=== PATIENT | male | born 1970 | race Caucasian/White ===

== ENCOUNTER 2016-11-14 12:21 | Emergency (ER) | payer BC ==
[~2016-11-14] VITALS: Ht 182.9 cm; Wt 125.0 kg
[~2016-11-14 12:21] MED LIST: AMLODIPINE BESYL5 MG; COLACE100 MG PO; FENOFIBRATE160 M1; FLEXERIL10 MG PO; GLUMETZA500 M1 PO; LISINOPRIL-HCT1 EAC3; LORTAB 5-325 M1 EACH PO; MOBIC7.5 MG PO; MOTRIN600 MG PO; MOTRIN800 MG PO; NAPROSYN500 MG PO; NORCO 5/3251 TABLET PO; PRAVACHOL20 MG PO; PRAVASTATIN; PREDNISONE20 MG PO; TAMIFLU75 MG PO
[2016-11-14 13:17] LABS: ADD MIUA? YES; BILIRUBIN NEGATIVE; BLOOD NEGATIVE; COLOR YELLOW ((YELLOW)); GLUCOSE (STRIP) 150; KETONES NEGATIVE; LEUKOCYTES NEGATIVE; NITRITE NEGATIVE; PROTEIN (STRIP) 100; SPECIFIC GRAVITY 1.029 (1.000-1.030)
[2016-11-14 13:22] LABS: BACTERIA NONE SEEN /HPF; EPITHELIAL CELLS RARE /HPF; MUCUS 1+ /LPF; RED BLOOD CELLS 0-5 /HPF (0-5); UCUL ADDED? NO; WHITE BLOOD CELLS 0-5 /HPF (0-5)
[2016-11-14 13:33] LABS: HEMATOCRIT 50.2 % (38.0-50.0); MCH 29.2 PG (29.0-34.0); MCHC 33.5 G/DL (30.0-36.0); MCV 87.2 FL (86-99); MEAN PLAT.VOLUME 9.4 uM^3 (9.0-12.4); PLATELET COUNT 235 K/uL (156-360); RBC DIS.WIDTH-CV 12.5 % (11.8-14.6); RBC DIS.WIDTH-SD 39.4 % (39-53); RED BLOOD COUNT 5.76 M/uL (4.00-5.50); WHITE BLOOD COUNT 9.8 K/uL (4.1-10.2)
[2016-11-14 13:57] LABS: CHLORIDE 101 mEq/L (99-109); POTASSIUM 4.7 mEq/L (3.7-5.4); SODIUM 138 mEq/L (136-147)
[2016-11-14 13:59] LABS: GLUCOSE 144 mg/dL (70-99)
[2016-11-14 14:03] LABS: ALKALINE PHOSPHATASE 49 IU/L (3-129); ANION GAP 11 MEQ/L (2-14); GFR ESTIMATE (CALCULATED) > 59 mL/min/; TOTAL BILIRUBIN 0.6 mg/dL (0.0-1.0)
[2016-11-14 14:04] LABS: UREA NITROGEN (BUN) 13 mg/dL (9-23)
[2016-11-14 14:06] LABS: LIPASE 43 U/L (1.0-51.0)
[2016-11-14] MEDS ORDERED: NORCO 5/3251 TABLET PO (14:48)
[2016-11-14] MEDS ORDERED: CIPRO500 MG PO (14:48)
[2016-11-14] MEDS ORDERED: FLAGYL500 MG PO (14:48)
[2016-11-14 14:53] VITALS: BP 123/87
== END 2016-11-14 14:58 | disposition home or self-care (01) ==
LOC: EME 12:21
DX: K57.32 Diverticulitis of large intestine without perforation or abscess without bleeding (principal); I10 Essential (primary) hypertension; E78.5 Hyperlipidemia, unspecified
CPT/HCPCS: 74176; 80053; 81003; 83690; 85027; 99281; 99285